=== PATIENT | male | born 1950 | race Caucasian/White ===

== ENCOUNTER → 2023-06-24 13:44 | Outpatient (REF) | payer OTHER, SELFPAY | LOC: RAD 13:44 | PROVIDERS: ATTENDING PHYSICIAN Internal Medicine Cardiovascular Disease; FAMILY PHYSICIAN Family Medicine | DX: I10 Essential (primary) hypertension (principal); I25.10 Atherosclerotic heart disease of native coronary artery without angina pectoris; I73.9 Peripheral vascular disease, unspecified; G62.9 Polyneuropathy, unspecified | CPT/HCPCS: 93922; 93925 ==

== ENCOUNTER → 2023-12-31 12:38 | Outpatient (REF) | payer OTHER, SELFPAY ==
--- NOTE | 2023-12-31 13:55 | CARDSERVLU ---
Echocardiogram with Lumason completed after protocol screening completed. Allergies verified.
Patent IV site: __Rt AC___
IV site flushed with 0.9% NaCl pre and post administration.
Diluted bolus method utilized to enhance visualization of ventricular wyatt.
Total volume given: ___4.5_ mL
Patient tolerated all procedures well without complications.
== END ==
LOC: RCS 12:38
PROVIDERS: ATTENDING PHYSICIAN Internal Medicine Cardiovascular Disease; FAMILY PHYSICIAN Family Medicine
DX: I35.0 Nonrheumatic aortic (valve) stenosis (principal)
CPT/HCPCS: 93306; Q9950

== ENCOUNTER 2024-01-21 06:16 | Day surgery (SDC) | payer OTHER, SELFPAY ==
[2024-01-21] VITALS (19 sets, daily range): BP systolic 127–229; BP diastolic 56–120; BMI 35.4
[2024-01-21] MEDS: LOW STRENGTH ASPIRIN 81 MG PO (07:00)
[2024-01-21] MEDS: NSS 500 IV (07:02)
--- NOTE | 2024-01-21 08:31 | CONSULT.STRU ---
Consultation
-
Date/Time Consultation Requested: 01/21/2024
Date/Time Consultation Performed: 01/21/2024
Requesting Provider: Zaire Ridley MD
Performing Provider: TYRA Alfaro
Reason for Consultation: /TAVR
Patient History
Physicians
Family Physician: Nancy Dallas MD
Outpatient Bowl Sander: Tammy Lopez MD
Primary Bowl Sander: Tammy Lopez MD
History of Present Illness
Mr. Mckeon is a 73 yom with a complex medical history consisting of , CAD (hx of CABG) PVD, renal insufficiency, and T2DM. His most recent echocardiogram from 12/31/2023 is notable for an EF 40-45%, aortic valve P/M 70/30-35, JUNITO 0.6, Pk Ronald 4.2,
trace AI, MAC with trace MR. Symptoms are difficult to ilicit d/t orthopedic limitations and neuropathy, however, he does have ROSA. Discussed the pathophysiology and treatment options of including SAVR and TAVR. Explained the evaluation process
comprising of stage CT scan with outpatient infusion, CT surgical consult, dental clearance, and a heart team discussion. TAVR booklet, contact information, prescriptions, and appointments given to patient. Allowed for and answered questions at
bedside,
Past Medical History
Past Medical History: CAD (hx of CABG x3), CHF (HFrEF), HTN, NIDDM, CARLEE (no CPAP), Renal Insufficiency, Valvular Disease (aortic stenosis) and Other (syncope, RBBB, first degree AV block, hyperlipidemia, CM, statin intolerance, PVD, bilateral
carotid artery obstruction, alcohol abuse (L) foot MRSA, cataracts, melanoma, pilonidal cyst, [place] (no MASTERS), fx (R) fibula)
Past Surgical History
Past Surgical History: CABG (2013), Orthopedic ((L) partial foot amputation (prosthesis), (L) foot skin graft) and Other (bilateral cataracts, melanoma from back removed, pilonidal cyst, LLE stent, implantable loop recorder)
Dental History
[facility] dentistry--Patient will make an appointment
Family History
Mother: Cause of (Alzxheimer's)
Father: Cause of ([place])
Family Medical History: CAD and Hypertension
Social History
Alcohol: Occasional
Drug: None
Tobacco: Non-Smoker
Personal: Other (significant other)
Living: With Family
Employment: Retired
Allergies
Allergy/AdvReac Type Severity Reaction Status Date / Time
Iodinated Contrast Media AdvReac Unknown 'kidney Verified 08/31/21 08:36
issues'
Moderna COVID-19 Vaccine Allergy Rash Uncoded 08/31/21 08:46
Home Medications
�Medication �Instructions �Recorded �Confirmed �Type
evolocumab 140 mg/mL subcutaneous 140 mg SQ Q2W High cholesterol 07/10/21 01/21/24 History
pen injector (Repatha SureClick)
gabapentin 300 mg capsule 300 mg PO DAILY Pain 07/10/21 01/21/24 History
insulin aspart U-100 100 unit/mL 0 units SC TIDPRN PRN blood sugar 07/10/21 01/21/24 History
(3 mL) subcutaneous pen (Novolog
FlexPen U-100 Insulin aspart)
insulin degludec 100 unit/mL (3 38 units SC HS Diabetes 07/10/21 01/21/24 History
mL) subcutaneous pen (Tresiba
FlexTouch U-100 insulin)
nifedipine 30 mg tablet,extended 30 mg PO DAILY Blood pressure 07/10/21 01/21/24 History
release
dapagliflozin propanediol 10 mg 10 mg PO DAILY DIABETES, RENAL 07/11/21 01/21/24 History
tablet (Farxiga) PROTECTION
acetaminophen 325 mg tablet 650 mg (2 x 325 mg) PO Q4HPRN PRN 07/12/21 01/21/24 Rx
aches #30 tabs
aspirin 81 mg tablet,delayed 81 mg PO DAILY Blood clot 07/12/21 01/21/24 Rx
release prevention/tx ##0
carvedilol 6.25 mg tablet 6.25 mg PO DAILY 08/31/21 01/21/24 History
atorvastatin 10 mg tablet 20 mg PO DAILY 01/21/24 01/21/24 History
flash glucose sensor (FreeStyle 01/21/24 01/21/24 History
Fly 14 Day Sensor kit)
hydrochlorothiazide 25 mg tablet 25 mg PO DAILY 01/21/24 01/21/24 History
losartan 100 mg tablet 100 mg PO DAILY 01/21/24 01/21/24 History
STS%
STS %: 2.94
Review of Systems
-
History Source: Patient
General: Reports No Symptoms
HEENT: Reports No Symptoms
Respiratory: Reports ROSA
Cardiac: Reports No Symptoms
Abdomen/GI: Reports No Symptoms
: Reports No Symptoms
Musculoskeletal: Reports No Symptoms
Neurological: Reports No Symptoms
Vascular: Reports PVD
Physical Exam
Vital Signs
Temp 97.3 F 01/21/24 07:02
Temp route: Oral 01/21/24 07:02
Pulse 46 01/21/24 07:45
Resp Rate 24 01/21/24 07:30
Blood pressure 162/64 01/21/24 07:02
Blood pressure extremity used: Right upper arm 01/21/24 07:02
Position: Sitting 01/21/24 07:02
SaO2 94 01/21/24 07:45
Oxygen Mode of Delivery Room air 01/21/24 07:02
Can the patient verbally communicate their pain? Yes 01/21/24 07:08
Actual Weight 105.6 kg 01/21/24 07:08
Body Mass Index (BMI) 35.4 01/21/24 07:08
Labs
01/07/2024
BUN/Creatinine: 32/1.98
GFR: 35
HH: 16.2/49.2
Plt: 252K
Albumin 4.0
Diagnostic Studies
ECHOCARDIOGRAM 12/31/2023:
CONCLUSIONS
1. Left ventricle: Mildly dilated with mildly reduced left ventricular
systolic function and visually estimated ejection fraction of 40-45%.
2. Right ventricle: Normal
3. Atria: Normal
4. Mitral valve: Trace mitral regurgitation
5. Aortic valve: Calcified with restricted aortic leaflet mobility. The mean
aortic valve gradient measured between 30-35 mmHg and the estimated aortic
valve area is 0.6 cm2 by the Continuity equation using an LVOT of 2.1 cm.
Trace aortic insufficiency
6. Tricuspid valve: No tricuspid regurgitation
7. When compared to the most recent echocardiogram from 12/17/22, the LVEF is
now visually estimated at 40-45% rather than 50% and the aortic valve mean
gradient has increased from 26 mmHg to 30-35 mmHg
CARDIAC CATHETERIZATION 01/21/2024:
HEMODYNAMICS (mmHg) :
RA (m) : 20
RV (s/d) : 75/11, 20
PA (s/d,m) : 75/31, 42
PCWP (m) : 34 with V waves to 60 mmHg
AO (s/d, m) : 177/66, 103
LV (s/d) : 208/24
LVEDP (m) : 42
Estimated Maicol Cardiac Output: 3.5 L/min and Cardiac Index: 1.6 L/min/M-2
Systemic vascular resistance: 23.7 Wood units or 1897 bbcfp-bhi-ei(-5)
Pulmonary vascular resistance: 6.3 Wood units or 502 [id number]-nkk-yi(-5)
AORTIC VALVE
Mean gradient: 35 mmHg
Aortic valve area: 0.82 cm�
CONCLUSION
1. Aortic stenosis with mean aortic valve gradient of 35 mmHg and estimated aortic valve area 0.82 cm�
2. Stable coronary artery disease with patent LUI-LAD and sequential [id number]
RECOMMENDATIONS
1. Patient will be discussed at upcoming valve clinic meeting. I reviewed the echocardiographic images and would suggest obtaining a leaflet calcium score by CT scan.
CAROTID ULTRASOUND 12/06/2022:
RIGHT:
Common Carotid Artery:
Prox: PSV: 83 cm/s EDV: 14 cm/s
Mid: PSV: 83 cm/s EDV: 15 cm/s
Distal: PSV: 64 cm/s EDV: 14 cm/s
External Carotid Artery:
PSV: 228 cm/s
Internal Carotid Artery:
Prox: PSV: 103 cm/s EDV: 22 cm/s Prior: PSV: cm/s
Mid: PSV: 135 cm/s EDV: 33 cm/s
Distal: PSV: 131 cm/s EDV: 30 cm/s
ICA/CCA Ratio: 1.62 Prior:1.71
Vertebral Artery:
PSV: 89 cm/s Flow:Antegrade
LEFT:
Common Carotid Artery:
Prox: PSV: 94 cm/s EDV: 17 cm/s
Mid: PSV: 86cm/s EDV: 16 cm/s
Distal: PSV: 99 cm/s EDV: 15cm/s
External Carotid Artery:
PSV: 129 cm/s
Internal Carotid Artery:
Prox: PSV: 127 cm/s EDV: 24 cm/s Prior: PSV: cm/s
Mid: PSV: 102 cm/s EDV: 16 cm/s
Distal: PSV: 95 cm/s EDV: 23 cm/s
ICA/CCA Ratio: 1.49 Prior:.82
Vertebral Artery:
PSV: 45 cm/s Flow:Antegrade
IMPRESSION: Calcified plaque throughout majority of visualized vessels. Velocity profiles are consistent with less than 50% stenosis bilateral internal carotid arteries. Antegrade flow bilateral vertebral arteries.
CABG 07/15/2023 ([facility]):
SURGICAL PROCEDURES: Coronary artery bypass grafting x3 done on 07/14/2013
and consisting of a left internal mammary artery to left anterior descending
and a saphenous vein graft sequentially to the 1st diagonal and then to obtuse
marginal #1.
Procedure Type:�Isolated AVR
PERIOPERATIVE OUTCOME ESTIMATE %
Operative Mortality 2.94%
Morbidity & Mortality 15.1%
Stroke 2.77%
Renal Failure 3.98%
Reoperation 3.91%
Prolonged Ventilation 9.02%
Deep Sternal Wound Infection 0.217%
Long Hospital Stay (>14 days) 5.45%
Short Hospital Stay (<6 days)* 38.9%
Exam
General: Well Developed, Well Nourished, No Apparent Distress and Comfortable
HEENT: Moist Mucous Membranes
Neck: Trachea Midline
Respiratory: Clear
Cardiac: Regular Rhythm and Murmur (II/ HAROON)
GI: Soft and Non Tender
Rectal: Deferred by Provider
Skin: Warm
Neuro: Awake, Alert, Oriented and AO x 3
Psych: Calm
Assessment / Plan
-
Aortic stenosis
Continue TAVR evaluation
Trend creatinine and GFR (Rx given)
Staged TAVR CT scan (chest w/ oid 02/05)
CT surgical consult (TT 02/11)
Frailty testing and KCCQ12 at consult
Continue aspirin
Dental clearance
Heart team discussion.
Data Reviewed
-
EKG: Tracing Personally Visualized and interpreted (SR with RBBB, first degree AVB)
Petroleum Inspector Supervisor: Report Reviewed by me and Discussed with Physician
Echo: Report Reviewed by me and Discussed with Physician
Labs: Labs Reviewed by me
Old Records: Reviewed (Dr. Lopez's office note, old records)
Total Time Spent with Patient (in minutes): 45
[2024-01-21] MEDS: NSS 1000 IV (09:44)
--- NOTE | 2024-01-21 10:04 | ITS.CL.CATH ---
Addendum entered and electronically signed by Zaire Ridley MD 01/21/24 12:27:
Attending addendum: Patient developed 2:1 AV conduction with episodes of what appears to be Wenckebach (2nd degree type 1). He does have a history of syncope several years ago with newly decreased LV function. I will discuss with EP and obtain ECG
/ [facility] interrogation. Further management will depend on EP evaluation
Original Note:
Pharmaceutical Scientist - Catheterization
Cardiac Catheterization
Procedure Report:
RIGHT AND LEFT HEART CATHETERIZATION
Date of Procedure: January 21, 2024
Referring: Dr. Tammy Lopez
PROCEDURES:
1. Right heart catheterization
2. Left heart catheterization with coronary angiography
3. Selective saphenous vein graft and FERNANDO angiography
INDICATION: This is a 73-year-old gentleman with a past medical history notable for coronary artery disease had coronary artery bypass grafting in 2013 with a LUI-LAD and EWB-wfwnwesu-HG. He has longstanding diabetes, marginally controlled
hypertension, hyperlipidemia and aortic stenosis. His most recent echocardiogram was notable for new LV dysfunction with an estimated ejection fraction of 40-45% and a mean aortic valve gradient between 30-35 mmHg. He is not physically active. He
has known peripheral vascular disease leading to amputation of the left foot. He follows with Dr. Lai. He has known underlying renal insufficiency and follows with Dr. Tristin Cardona.
ACCESS: Left common femoral artery, 6 [place] sheath in left common femoral vein, 6 [place] sheath
HEMODYNAMICS (mmHg) :
RA (m) : 20
RV (s/d) : 75/11, 20
PA (s/d,m) : 75/31, 42
PCWP (m) : 34 with V waves to 60 mmHg
AO (s/d, m) : 177/66, 103
LV (s/d) : 208/24
LVEDP (m) : 42
Estimated Maicol Cardiac Output: 3.5 L/min and Cardiac Index: 1.6 L/min/M-2
Systemic vascular resistance: 23.7 Wood units or 1897 lctmq-fzj-xn(-5)
Pulmonary vascular resistance: 6.3 Wood units or 502 uqrch-kgb-dk(-5)
AORTIC VALVE
Mean gradient: 35 mmHg
Aortic valve area: 0.82 cm�
CORONARY ANGIOGRAPHY
Dominance: Right
LEFT MAIN: Short and unobstructed
LEFT ANTERIOR DESCENDING: The LAD arises normally from the left main and is moderate to heavily calcified. There is competitive flow in the mid LAD near the second septal turnstile collector from a widely patent FERNANDO graft as listed below
CIRCUMFLEX: The circumflex is a moderate caliber nondominant vessel. A small first obtuse marginal branch is noted to be occluded with the distal vessel filling via left to left collaterals. A large terminal obtuse marginal branch is the recipient
of a sequential portion of the MZS-oerzqapk-IS bypass conduit. There is antegrade and retrograde filling of OM 2 and the bypass graft appears widely patent
RIGHT CORONARY ARTERY: The right coronary artery is known to be 100% occluded in its midportion since 2012
GRAFT ANGIOGRAPHY:
1. KCW-ffncdzmi-WX 2: The sequential saphenous vein graft to the diagonal and OM 2 is widely patent
2. LUI-LAD: The LUI-mid LAD is widely patent with anterograde and retrograde filling of the LAD
LEFT VENTRICULOGRAPHY: Not done due to elevated creatinine
RADIATION SUMMARY: Fluoro Time (min): 9.9, Dose (mGy): 620, DAP (Gy.cm2) : 58.8
Closure Device: 6 [place] Angio-Seal LFA
CONCLUSION
1. Aortic stenosis with mean aortic valve gradient of 35 mmHg and estimated aortic valve area 0.82 cm�
2. Stable coronary artery disease with patent LUI-LAD and sequential [id number]-[id number]-UA0
RECOMMENDATIONS
1. Patient will be discussed at upcoming valve clinic meeting. I reviewed the echocardiographic images and would suggest obtaining a leaflet calcium score by CT scan.
Copy to: Dr. Tammy Lopez
--- NOTE | 2024-01-21 12:50 | PTCARENOTE ---
Conduction delay noted on monitor, more noticeable with heart rate dips to high 30's. DR Ridley notified. EKG done. Sánchez Valdez shortly at the bedside with LINQ device. EKG done. 2-[address] Lopez shortly after the the
bedside obtaining consent for pacemaker insertion and LINQ removal. Dr Reinoso also evaluating pt. Pt's blood sugars checked with own device. 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 Pt had only 2 sips of donna katarina,
spouse drank his bedside drink because she's a DM1 sensing BG drop. He's refused food so he's been mostly NPO with the exception of' a couple of sips of donna katarina'. IV patent. Abx ordered.
--- NOTE | 2024-01-21 13:09 | PTCARENOTE ---
Report to Christina VILLASEÑOR. Pt to EP lab now.
--- NOTE | 2024-01-21 13:26 | ITS.CL.PACE ---
Iron Piler - Pacemaker Implant
Pacemaker Implant
Procedure Report:
PACEMAKER IMPLANT REPORT
Primary Care Provider: Dr Nancy Dallas
Primary end stapler: Dr Tammy Lopez
Date of Procedure: January 21, 2024
Procedure:
Implantation of dual-chamber permanent pacemaker utilizing the left bundle branch for conduction system pacing
Indication/Diagnosis:
Non-reversible symptomatic bradycardia due to second atrioventricular block.
He has previously had abrupt syncope and no definite etiology. He does have left anterior fascicular block and first-degree AV delay. More recently it has been noted that he has 2-1 AV block, symptomatic with dyspnea on exertion. He has known
left ventricular systolic dysfunction without coronary artery disease. LVEF is 40-45%. Additionally he has moderate to severe aortic stenosis and is being considered for TAVR.
After informed consent was obtained, 'time out' was called and confirmed, the patient was prepped and draped in a sterile fashion. Lidocaine with epi was used for local anesthesia. Central venous access was obtained via subclavian venipuncture. An
incision was made along the left chest and a pre-pectoral pocket was formed. Using a Seldinger technique and peel-away sheaths, the pacing leads were placed under fluoroscopic guidance.
Fluoroscopy was used to determine likely anatomic site for left bundle branch pacing. The Medtronic C315 sheath was used to deliver the Medtronic 3830 Selectsecure pacing lead with the helix exposed just exposed from the sheath tip during continuous
monitoring when pacemapping the septum during gentle clockwise rotation to obtain a paced QRS morphology of a W pattern in lead V1. Once the suspected optimal site was identified, lead deployment was performed with several rapid rotations as paced
QRS morphology was intermittently monitored until a paced QRS complex in lead V1 demonstrated development of an R wave (qR or rSR).
Unipolar pacing impedance dropped by approximately 200 ohms suggesting it had reached the left ventricular subendocardial.
Stable positive VEgm injury current is present throughout final lead position including at end of case, suggesting there was no perforation through the septum into the LV cavity.
Final unipolar pacing impedance is 850 Ohms
Unipolar pacing threshold is stable at 1 V @ 0.4 ms.
Final conduction system paced QRS complex duration is 92 ms
LVAT is 88 ms and peak V5 -> peak V1 timing is 42 ms
Right atrial lead was placed at the RAA.
Once testing (see below) showed adequate and stable function, the leads were secured using the suture sleeves. The pocket was liberally irrigated with antibiotic solution. The leads were connected to the generator header and the leads and
generator were placed within the pocket. Fluoroscopy confirmed stable lead position. The pocket was closed in the typical fashion.
IMPLANTS:
Medtronic [id number], SN: [id number], Left Pectoral
RA: Medtronic 5076-45, SN: [id number], RAA
RV: Medtronic 3830 , SN:[id number], Interventricular septum at LBB
DEVICE TESTING:
Sensing: RA 1.9 mV, RV 9.4 mV
Capture: RA 1.25 V@0.4ms, RV 0.75 V@0.4ms
Ohms: RA 722, RV 456 (bipolar)
FINAL PROGRAMMING
Tommy Pacing: DDD 60-130 ppm
COMPLICATIONS:
None
CONCLUSIONS:
Successful implant of dual chamber permanent pacemaker utilizing Left Bundle Branch conduction system capture for pacing for cardiac resynchronization.
RECOMMENDATIONS:
Post-op care (tele, CXR, IV abx)
In-Office wound check in 5-7 days
Additionally, review of his right heart catheterization this morning shows markedly elevated filling pressures and elevated pulmonary capillary wedge pressure of 34 mmHg. Although this is in the setting of marked hypertension, he is likely somewhat
volume overloaded, possibly exacerbation of heart failure due to his 2-1 heart block. Will give a one-time dose of 40 mg IV Lasix tonight.
Copy to:
Dr Nancy Dallas
Dr Tammy Lopez
--- NOTE | 2024-01-21 13:32 | ITS.CL.IMPLP ---
Game Preserve Manager - Implant Loop
Implant Loop
Procedure Report:
LINQ IMPLANTED MONITOR REMOVAL
Date of Procedure: January 21, 2024
Primary Care Provider: Dr Nancy Dallas
Primary asp net c developer: Dr Tammy Lopez
PROCEDURES:
1. Removal of implanted loop recorder
INDICATION FOR PROCEDURE:
Diagnosis made, ILR no longer required.
After informed consent was obtained,'time out' was called and confirmed, the patient was prepped and draped in a sterile fashion.
SEDATION: Via the anesthesia department with conscious sedation
Lidocaine with epi was used for local anesthesia. An incision was made along the prior incision and the Linq monitor was carefully dissected from the pocket. The pocket was liberally irrigated with antibiotic solution. The pocket was closed in
the typical fashion.
COMPLICATIONS:
None
CONCLUSIONS:
1. Removal of implanted loop recorder.
RECOMMENDATIONS:
In-Office wound check in 7-14 days.
Copy to:
Dr Nancy Dallas
Dr Tammy Lopez
[2024-01-21] MEDS: LASIX 40 MG IV (15:47)
[2024-01-21] MEDS: COZAAR 100 MG PO (15:55)
--- NOTE | 2024-01-21 15:56 | PTCARENOTE ---
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 AO x 3. V-paced HR 86, BP 185/88. Iv Lasix and Cozaar given. Urinal provided. Left arm immobilizer in place. Left chest wall dressing dry and intact. Left groin cath site CDI, partially ambulated left foot, +1 pulse.
Denies pain ,Call ariza in reach
[2024-01-21 16:42] LABS: Glucose - Point of Care 102 mg/dl (70-99)
[2024-01-21] MEDS: COREG 6.25 MG PO (19:49)
[2024-01-21] MEDS: TYLENOL 650 MG PO (19:50)
[2024-01-21] MEDS: ANCEF 5 IV (19:51)
[2024-01-21 22:44] LABS: Glucose - Point of Care 149 mg/dl (70-99)
[2024-01-21] MEDS: LANTUS 0.38 UNITS SC (22:44)
--- NOTE | 2024-01-21 23:00 | PTCARENOTE ---
Pt received at change of shift. VSS, V paced on tele with HR 60s-70s. L groin cath site c/d/i with no complications noted. L chest wall PPM site c/d/i w/ pressure dressing and immobilizer in place. Tylenol administered for 5/10 L chest wall
incision pain, see MAR. Pt voiding in urinal. Can make needs known. Call ariza within reach.
[2024-01-22] VITALS (7 sets, daily range): BP systolic 125–182; BP diastolic 64–86; PULSE 70
[2024-01-22] MEDS: ANCEF 5 IV (04:38)
[2024-01-22 05:11] LABS: Hematocrit 44.4 % (39.0-52.0); Hemoglobin 15.5 g/dL (13.0-18.0); Mean Corp Hgb Conc. 34.9 g/dL (33.0-37.0); Mean Corpuscular Hgb 29.8 pg (27.0-31.0); Mean Corpuscular Volume 85.2 fL (80.0-94.0); Mean Platelet Volume 10.3 fL (7.4-10.4); Platelet Count 240 10^3/uL (130-400); Red Blood Cell Count 5.21 10^6/uL (4.70-6.10); Red Cell Dist. Width 14.2 % (11.5-14.5); White Blood Cell Count 7.9 10^3/uL (4.8-10.8)
[2024-01-22 05:36] LABS: Blood Urea Nitrogen 31 mg/dl (9-20); Calcium 8.6 mg/dl (8.4-10.2); Carbon Dioxide 24 mmol/L (22-30); Chloride 105 mmol/L (98-107); Estimated Creatinine Clearance 46 ml/min; Glucose 95 mg/dl (70-99); Magnesium 2.1 mg/dl (1.6-2.3); Potassium 4.3 mmol/L (3.5-5.1); Sodium 143 mmol/L (135-145); eGFR 42.04
[2024-01-22] MEDS: ASPIR LOW (ENTERIC COATED) 81 MG PO (07:58)
[2024-01-22] MEDS: FARXIGA 10 MG PO (07:58)
[2024-01-22] MEDS: COREG 6.25 MG PO ×2 (07:58→10:41)
[2024-01-22] MEDS: LIPITOR 20 MG PO (07:58)
[2024-01-22] MEDS: ORETIC 25 MG PO (07:58)
[2024-01-22] MEDS: COZAAR 100 MG PO (07:58)
[2024-01-22] MEDS: NEURONTIN 300 MG PO (07:58)
[2024-01-22] MEDS: PROCARDIA XL (EXTENDED RELEASE) 30 MG PO (08:00)
[2024-01-22 08:42] LABS: Glucose - Point of Care 93 mg/dl (70-99)
[2024-01-22 08:55] LABS: Glycohemoglobin (HgbA1c) 6.9 % (4.0-5.6)
[2024-01-22] MEDS: NORVASC 5 MG PO (09:09)
--- NOTE | 2024-01-22 10:00 | W.PN.CARDCBS ---
Today's Communication / Plan
-
post LHC, PPM and loop explant 01/21/24
tighter BP control, increase carvedilol and switch to amlodipine
continue outpt TAVR eval
Home today
Impression / Plan
-
Primary care physician: Nancy Dallas MD
Primary flight dispatcher: Dr. Tammy Lopez
73-year-old gentleman with a past medical history notable for coronary artery disease had coronary artery bypass grafting in 2013 with a LUI-LAD and VKT-iqpgwoyl-FK. He has longstanding diabetes, marginally controlled hypertension, hyperlipidemia
and aortic stenosis. His most recent echocardiogram was notable for new LV dysfunction with an estimated ejection fraction of 40-45% and a mean aortic valve gradient between 30-35 mmHg. He is not physically active. He has known peripheral
vascular disease leading to amputation of the left foot. He follows with Dr. Lai. He has known underlying renal insufficiency and follows with Dr. Tristin Cardona.
Impression:
CAD s/p CABGx3 2013 (LUI-LAD, SVG-diag-OM)
Severe Aortic stenosis
Syncope s/p Loop recorder 2021
symptomatic bradycardia with 2:1 heart block
acute on chronic HFrEF 40-45%
RBBB
HTN
HLD
DM2 with diabetic neuropathy
CDK 3b
b/l carotid artery disease
PVD prior LLE stent
partial Left foot amputation
h/o ETOH abuse
Plan:
post [place] for TAVR eval with patent grafts and no new CAD
in recovery HR noted on tele to be bradycardic with periods of 2:1 heart block
He underwent Linq removal and DC PPM 01/21/24
tele AsVpaced, site stable
RHC pressures severely elevated and received lasix 40iv x 1
Denies sob this am, CXR no acute pulmonary edema, no PTX
He is also extremely HTN, we will increase carvedilol to 12.5mg bid
Stop nifedipine, new start to amlodipine 5mg daily
Monitor bp at home and bring log to f/u apt
Severe , TAVR team will discuss planning for outpt w/u CT scan and surgical eval
check BMP next week with CKD3b prior to CT scan, Cr 1.7 post cath/device (baseline 1.5-1.7)
Activity restrictions reviewed
inc check next week
stable for home today if next BP improved
Progress Note - Ditching Machine Operator
Subjective
Date of Service: January 22, 2024
mild inc pain, denies sob
Objective
Labs:
01/22/24 04:51
01/22/24 04:51
Labs
Hgb 15.5 g/dL (13.0-18.0) 01/22/24 04:51
Hct 44.4 % (39.0-52.0) 01/22/24 04:51
Plt Count 240 10^3/uL (130-400) 01/22/24 04:51
Sodium 143 mmol/L (135-145) 01/22/24 04:51
Potassium 4.3 mmol/L (3.5-5.1) 01/22/24 04:51
BUN 31 mg/dl (9-20) H 01/22/24 04:51
Creatinine 1.7 mg/dL (0.7-1.3) H 01/22/24 04:51
Glucose 95 mg/dl (70-99) 01/22/24 04:51
Vital Signs and I&O:
Vital Signs
Temp Pulse Resp BP Pulse Ox
97.9 F 67 18 182/83 98
01/22/24 07:48 01/22/24 08:00 01/22/24 07:48 01/22/24 07:46 01/22/24 08:00
Vital Signs
Temp Pulse Resp BP Pulse Ox
97.9 F 67 18 182/83 98
01/22/24 07:48 01/22/24 08:00 01/22/24 07:48 01/22/24 07:46 01/22/24 08:00
Intake & Output
01/20/24 01/21/24 01/22/24 01/23/24
06:59 06:59 06:59 06:59
Intake Total 1250 / 1250 300 / 300
Output Total 1600 / 1600
Balance -350 / -350 300 / 300
Physical Exam
Physical Exam
NAD< AOX3
S1, S2, RRR
CTAB, non labored no wheeze
SNTND bsx4
L fem site c/d/i soft, no HT
L CW Aquacel dressing c/d/i, no HT
loop explant site with steri strips on drainage
--- NOTE | 2024-01-22 11:38 | CM ---
CM following for DC planning needs.
Met w/ patient at bedside to complete initial assessment.
Pt. informs that he resides w/ spouse in a private, 2 story home but is maintained on the first level. He is indep. at baseline and uses a SPC for ambulation. Spouse feels that patient may benefit from RW. I asked WEB OPERATIONS LEAD for PT evaluation for RW
assessment; they can provide at DC if felt this is beneficial.
Pt. has RX plan and uses [facility] on [address] in [place].
He anticipates to return at a later time for TAVR.
Anticipate DC to home without needs.
Will remain avail.
[2024-01-22 12:51] LABS: Glucose - Point of Care 115 mg/dl (70-99)
--- NOTE | 2024-01-22 15:19 | PTCARENOTE ---
Discharge instructions reviewed w/ pt. Verbalizes understanding. IV and tele removed. Belongings collected and brought home w/ spouse. Pt discharged to home. Escorted in wheelchair w/ staff assist.
--- NOTE | 2024-01-22 15:41 | W.DS.TRANS ---
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
-
Discharge Instructions:
Discharge Diagnosis/Procedures Cardiac cath, Pacemaker implant and loop explant
Diet Low Cholesterol,Diabetic, Carb Controlled,2 Gram
Sodium
Driving Restrictions No driving for 1 week
Bathing Restrictions OK to Shower
Blood Work PLEASE GET YOUR LAB WORK NEXT WEEK (SATURDAY OR
SATURDAY). PLEASE FAX RESULTS TO [phone]
[facility] HEART TEAM
Others Tests THE FIRST PORTION OF YOUR CT SCAN IS SCHEDULED
FOR 02/06/2024 @ 9:30 AT [facility]. (
AT 7:45 YOU WILL GO TO THE OUTPATIENT INFUSION
CENTER BEFORE AND AFTER CT SCAN, PLEASE SEE
ATTACHED INSTRUCTIONS) NOTHING TO EAT OR DRINK [address] SCAN. PLEASE BRING A LIST
OF YOUR MEDICATIONS.
YOU WILL NEED DENTAL CLEARANCE BEFORE YOUR
VALVE REPLACEMENT
Instructions:
Stand-Alone Forms: DC Instructions- Cath/EP Lab
Changes to Home Medications: Yes
Discharge Medications:
DC Medications w/original date entered in [employer]
evolocumab 140 mg/mL subcutaneous pen injector (Repatha SureClick) 140 mg SQ Q2W High cholesterol 07/10/21
gabapentin 300 mg capsule 300 mg PO DAILY Pain 07/10/21
insulin aspart U-100 100 unit/mL (3 mL) subcutaneous pen (Novolog FlexPen U-100 Insulin aspart) 0 units SC TIDPRN PRN blood sugar 07/10/21
insulin degludec 100 unit/mL (3 mL) subcutaneous pen (Tresiba FlexTouch U-100 insulin) 38 units SC HS Diabetes 07/10/21
dapagliflozin propanediol 10 mg tablet (Farxiga) 10 mg PO DAILY DIABETES, RENAL PROTECTION 07/11/21
acetaminophen 325 mg tablet 650 mg (2 x 325 mg) PO Q4HPRN PRN aches #30 tabs 07/12/21
aspirin 81 mg tablet,delayed release 81 mg PO DAILY Blood clot prevention/tx ##0 07/12/21
atorvastatin 10 mg tablet 20 mg PO DAILY 01/21/24
flash glucose sensor (FreeStyle Fly 14 Day Sensor kit) 01/21/24
hydrochlorothiazide 25 mg tablet 25 mg PO DAILY 01/21/24
losartan 100 mg tablet 100 mg PO DAILY 01/21/24
amlodipine 5 mg tablet 5 mg PO DAILY #90 tabs 01/22/24
carvedilol 6.25 mg tablet 12.5 mg (2 x 6.25 mg) PO BID #0 tabs 01/22/24
Home Medication Changes
stopped nifedipine, new to amlodipine, increased carvedilol to 12.5 bid
Pending Results: No
== END 2024-01-22 15:21 | disposition home or self-care (01) ==
LOC: CATH 06:16
PROVIDERS: Nurse Practitioner Adult Health; ATTENDING PHYSICIAN Internal Medicine Interventional Cardiology; FAMILY PHYSICIAN Family Medicine; OTHER PHYSICIAN Internal Medicine Cardiovascular Disease
DX: I44.1 Atrioventricular block, second degree (principal); I25.10 Atherosclerotic heart disease of native coronary artery without angina pectoris; Z95.1 Presence of aortocoronary bypass graft; I35.0 Nonrheumatic aortic (valve) stenosis; R55 Syncope and collapse; I50.23 Acute on chronic systolic (congestive) heart failure; I13.0 Hypertensive heart and chronic kidney disease with heart failure and stage 1 through stage 4 chronic kidney disease, or unspecified chronic kidney disease; I45.2 Bifascicular block; E11.40 Type 2 diabetes mellitus with diabetic neuropathy, unspecified; E11.22 Type 2 diabetes mellitus with diabetic chronic kidney disease; E11.51 Type 2 diabetes mellitus with diabetic peripheral angiopathy without gangrene; Z95.820 Peripheral vascular angioplasty status with implants and grafts; F10.21 Alcohol dependence, in remission; Z79.4 Long term (current) use of insulin; Z79.899 Other long term (current) drug therapy; Z79.82 Long term (current) use of aspirin; Z09 Encounter for follow-up examination after completed treatment for conditions other than malignant neoplasm
CPT/HCPCS: 33208; 33286; 71045; 80048; 82962; 83036; 83735; 85027; 93005; 93461; 97162; C1760; C1769; C1785; C1887; C1892; C1894; C1898; Q9967

== ENCOUNTER 2024-02-06 07:39 | Outpatient (RCR) | payer OTHER, SELFPAY ==
[2024-02-06] MEDS: NSS 500 IV (08:17)
[2024-02-06 08:33] VITALS: BP 151/71
== END 2024-02-07 08:07 | disposition home or self-care (01) ==
LOC: OID 07:39
PROVIDERS: ATTENDING PHYSICIAN Nurse Practitioner Adult Health; FAMILY PHYSICIAN Family Medicine
DX: I35.0 Nonrheumatic aortic (valve) stenosis (principal); Z92.89 Personal history of other medical treatment
CPT/HCPCS: 74174; 96360; 96361; Q9967

== ENCOUNTER 2024-02-25 08:31 | Outpatient (RCR) | payer OTHER, SELFPAY ==
[2024-02-25 09:10] VITALS: BP 157/77
[2024-02-25] MEDS: NSS 500 IV (09:11)
== END 2024-02-26 10:16 | disposition home or self-care (01) ==
LOC: OID 08:31
PROVIDERS: ATTENDING PHYSICIAN Nurse Practitioner Adult Health; FAMILY PHYSICIAN Family Medicine
DX: I35.0 Nonrheumatic aortic (valve) stenosis (principal)
CPT/HCPCS: 75572; 96360; 96361; Q9967

== ENCOUNTER 2024-04-02 09:25 | Inpatient (IN) | payer OTHER, SELFPAY ==
--- NOTE | 2024-03-25 07:05 | HPS.HSE ---
Family Physician
-
Family Physician: Nancy Dallas
Chief Complaint
-
SOB
Pre-TAVR evaluation
History of Present Illness
Mr. Mckeon is a 73 yom with a complex medical history consisting of , CAD (hx of CABG) PVD, renal insufficiency, and T2DM. His most recent echocardiogram from 12/31/2023 is notable for an EF 40-45%, aortic valve P/M 70/30-35, JUNITO 0.6, Pk Ronald 4.2,
trace AI, MAC with trace MR. His cardiac catheterization from 01/21/2024 is significant for aortic stenosis with mean aortic valve gradient of 35 mmHg and estimated aortic valve area 0.82 cm� and stable coronary artery disease with patent LUI-LAD
and sequential [id number]. Post catheterization Mr. Mckeon developed 2:1 AV conduction with episodes of what appears to be Wenckebach (2nd degree type 1). He received a successful implant of Medtronic dual chamber permanent pacemaker utilizing
Left Bundle Branch conduction system capture for pacing for cardiac resynchronization. Symptoms are difficult to ilicit d/t orthopedic limitations and neuropathy, however, he does have ROSA. Discussed the pathophysiology and treatment options of
including SAVR and TAVR. Explained the evaluation process comprising of stage CT scan with outpatient infusion, CT surgical consult, dental clearance, and a heart team discussion.
Mr. Mckeon has been evaluated by the heart team and recommended for a 26mm S3 via right transfemoral access. He has been scheduled for TAVR 04/02/2024. Confirmed medication list and Mr. Mckeon will continue aspirin daily including the morning of
TAVR, he will hold Farxiga x 5 days prior to TAVR (last dose Monday 03/27). Patient will arrive to the [facility] at 0930. Reviewed the risks of the procedure as discussed with Dr. Niño in consult including stroke and vascular injury. He was
informed that he will receive a phone call from the heart team on Saturday04/01/2024 to confirm time and location of arrival. Allowed for and answered questions.
Medical History
Past Medical History
Past Medical History: Reports CAD (Hx of CABG), CHF (HFrEF), HTN, IDDM, Renal Failure (Hx of renal failure (not requiring dialysis) ), Valvular Disease (aortic stenosis) and Other (Diabetic neuropathy, CM (EF 15%), alcohol abuse, RBBB w/ LAFB,
hyperlipidemia, PVD, MRSA (L) foot (2019), syncope, CARLEE (no CPAP), cataracts, melanoma, [place] (no MASTERS), fx (R) fibula)
Past Surgical History: Reports Cardiac (CABGx3 (2013), PPM (2023)), Orthopedic ((L) great toe and first toe amputation, (L) foot skin graft) and Other (melanoma removed from back, pilonidal cyst, bilateral cataracts)
Social History
Tobacco: Non-smoker
Alcohol: Occasional
Drug: None
Personal:
Living: With Family
Family History
Family History: CAD and Diabetes
Allergies / Home Medications
Allergies reflects when Allergies were last updated in [employer].
Augmentin
Moderna COVID-19 Vaccine
Home Medications with original date entered in [employer]
Acetaminophen 325 MG Tablet 1 tablet as needed Orally every 6 hrs
amLODIPine Besylate 10 MG Tablet 1 tablet Orally Once a day
Aspirin 81 MG Tablet Delayed Release 1 tablet Orally Once a day
Atorvastatin Calcium 10 MG Tablet 2 tablet Orally Once a Day
Carvedilol 12.5 MG Tablet 1 tablet with food Orally Twice a Day
Farxiga(Dapagliflozin Propanediol) 10 MG Tablet 1 tablet Orally Once a Day
FreeStyle Fly 14 Day Sensor
Gabapentin 300 MG Capsule 1 capsule Oral Once a Day
hydroCHLOROthiazide 25 MG Tablet 1 tablet in the morning Orally Once a day
Losartan Potassium 100 MG Tablet 1 tablet Orally Once a day , Notes to Pharmacist: increased dose
NovoLOG(Insulin Aspart) 100 UNIT/ML Solution 30 units before each meals then follow sliding scale Subcutaneous
Repatha(Evolocumab) 140 MG/ML Solution Prefilled Syringe 1 ml Subcutaneous every 2 week
Allergy/Medication List:
Augmentin
Moderna Covid vaccine
Review of Systems
-
History Source: Patient
Constitutional: Reports No Symptoms
EENT: Reports No Symptoms
Respiratory: Reports Trouble Breathing
Cardiac: Reports No Symptoms
Abdomen/GI: Reports No Symptoms
: Reports No Symptoms
Musculoskeletal: Reports No Symptoms
Skin: Reports No Symptoms
Neurological: Reports No Symptoms
Endocrine: Reports No Symptoms
Hematologic/Lymphatic: Reports No Symptoms
Psych: Reports No Symptoms
Physical Exam
Physical Exam
General: Well Developed, Well Nourished, No Apparent Distress and Comfortable
HEENT: NormoCephalic and Moist mucous membranes
Respiratory: Clear
Cardiac: Murmur (III/ HAROON)
GI: Soft, Non Tender and Non Distended
Rectal: Deferred by Provider
Genito-urinary: Deferred by me
Musculoskeletal: Edema, Left Lower Extremity (trace) and Edema, Right Lower Extremity (trace)
Skin: Warm and Dry
Neuro: Awake, Alert and Oriented
Psych: Calm
Data Reviewed
-
CT Scan: Report Reviewed by me and Discussed with Physician (TAVR CT scan reviewed with the heart team)
Medical Tests (Nuc Med, Echo, EKG etc): Report Reviewed by me and Discussed with Physician (echocardiogram and cardiac catheterization reviewed with the heart team)
Lab Data: Labs Reviewed by me
Old Records: Reviewed (Office notes and procedure notes)
Impression/Plan
-
IMPRESSION/PLAN:
Aortic stenosis
TF TAVR planned utilizing a 26mm S3 via (R) transfemoral access.
POD#1/#30 echocardiogram
Cardiac rehab consult
Continue aspirin.
Labs
-
Labs:
WBC 8.6 10^3/uL (4.8-10.8) 03/25/24 08:45
RBC 5.10 10^6/uL (4.70-6.10) 03/25/24 08:45
Hgb 15.4 g/dL (13.0-18.0) 03/25/24 08:45
Hct 45.8 % (39.0-52.0) 03/25/24 08:45
Plt Count 215 10^3/uL (130-400) 03/25/24 08:45
Sodium 139 mmol/L (135-145) 03/25/24 08:45
Potassium 4.3 mmol/L (3.5-5.1) 03/25/24 08:45
Chloride 99 mmol/L (98-107) 03/25/24 08:45
Carbon Dioxide 29 mmol/L (22-30) 03/25/24 08:45
BUN 27 mg/dl (9-20) H 03/25/24 08:45
Creatinine 1.6 mg/dL (0.7-1.3) H 03/25/24 08:45
eGFR 45.21 03/25/24 08:45
Glucose 151 mg/dl (70-99) H 03/25/24 08:45
Calcium 8.5 mg/dl (8.4-10.2) 03/25/24 08:45
Albumin 4.1 g/dl (3.5-5.0) 03/25/24 08:45
[2024-03-25 08:35] VITALS: BMI 37.3
[2024-03-25 09:02] LABS: % Basophils 0.5 % (0-2); % Eosinophils 0.7 % (0-6); % Immature Granulocytes 0.4 % (0-0.5); % Lymphocytes 7.1 % (20.5-51.1); % Monocytes 7.8 % (1.7-9.3); % Neutrophils 83.5 % (42.2-75.2); Absolute Eosinophils 0.1 10^3/uL (0-0.7); Absolute Lymphocytes 0.6 10^3/uL (1.2-3.4); Absolute Monocytes 0.7 10^3/uL (0.1-0.6); Absolute Neutrophils 7.2 10^3/uL (1.4-6.5); Hematocrit 45.8 % (39.0-52.0); Hemoglobin 15.4 g/dL (13.0-18.0); Mean Corp Hgb Conc. 33.6 g/dL (33.0-37.0); Mean Corpuscular Hgb 30.2 pg (27.0-31.0); Mean Corpuscular Volume 89.8 fL (80.0-94.0); Mean Platelet Volume 10.4 fL (7.4-10.4); Nucleated Red Blood Cells % 0 % (-); Platelet Count 215 10^3/uL (130-400); Red Cell Dist. Width 14.1 % (11.5-14.5); White Blood Cell Count 8.6 10^3/uL (4.8-10.8)
[2024-03-25 09:18] LABS: INR 0.87; PT 12.3 Sec (11.4-14.6)
[2024-03-25 09:21] LABS: APTT 28.1 Sec (23.4-35.0)
[2024-03-25 09:24] LABS: ALT (SGPT) 14 U/L (0-50); AST (SGOT) 21 U/L (17-59); Albumin 4.1 g/dl (3.5-5.0); Alkaline Phosphatase 129 U/L (38-126); Blood Urea Nitrogen 27 mg/dl (9-20); Calcium 8.5 mg/dl (8.4-10.2); Carbon Dioxide 29 mmol/L (22-30); Chloride 99 mmol/L (98-107); Estimated Creatinine Clearance 50 ml/min; Glucose 151 mg/dl (70-99); Potassium 4.3 mmol/L (3.5-5.1); Sodium 139 mmol/L (135-145); Total Bilirubin 0.6 mg/dl (0.2-1.3); Total Protein 6.9 g/dl (6.3-8.2); eGFR 45.21
[2024-03-25 09:36] LABS: Glycohemoglobin (HgbA1c) 6.9 % (4.0-5.6)
[2024-03-25 10:08] LABS: Urine Albumin 2+ (Neg - Trace); Urine Bilirubin Negative (Negative); Urine Character Clear (Clear); Urine Color Yellow; Urine Glucose 3+ (Negative); Urine Ketone Negative (Negative); Urine Leukocyte Negative (Negative); Urine Nitrite Negative (Negative); Urine Occult Blood Trace (Negative); Urine Urobilinogen Negative (Neg - 1+); Urine pH 6.5 (5.0-9.0)
[2024-03-25 10:31] LABS: Urine Bacteria Moderate (Negative); Urine Red Blood Cell 0-2 /HPF (0-2); Urine Squamous Cell 0-2 /LPF (Few); Urine White Cell 0-2 /HPF (0-5)
--- NOTE | 2024-03-25 10:40 | CM ---
Met with and Mrs. Mckeon in [facility]. He states prior to admission he resides with his spouse in a two story home with a ramp to enter. He states he has a first floor set-up with a powder room. He states he has to go up a full flight of steps to
get to full bathroom to shower. He states prior to admission he ambulates with a single point cane. He states he has a single point cane and rolling walker at home. He states he has a prescription plan. He states his spouse will be home to assist
in his care if needed. The discharge plan is to return home with his spouse and a home visit by the Transitional Care Nurse when medically stable.
We reviewed pre-op and post-op routines. We reviewed the shower instructions. He has the soap and the written instructions. He already has the TAVR Educational Booklet. We also reviewed restrictions including driving and lifting restrictions.
We also discussed a home visit by the Transitional Care Nurse. He is agreeable to a home visit. The plan is to TAVR on March.
[2024-04-02] VITALS (15 sets, daily range): BP systolic 128–168; BP diastolic 59–103; BMI 36.0
[2024-04-02 10:01] LABS: Glucose - Point of Care 122 mg/dl (70-99)
--- NOTE | 2024-04-02 12:25 | CM ---
Reviewed chart. Mr. Mckeon is in the operating room today. Prior to admission he resides with his spouse in a two story home with a ramp to enter. He has a first floor set-up with a powder room. He has to go up a full flight of steps to get to the
full bathroom to shower. Prior to admission he ambulates with a single point cane. He has a single point cane and rolling walker at home. He has a prescription plan. His spouse will be home to assist in his care if needed. Medical work-up in
progress. The discharge plan is to return home with his spouse and a home visit by the Transitional Care Nurse when medically stable.
--- NOTE | 2024-04-02 14:43 | W.CVOR.SURPR ---
CVOR Surgeon Immed Pre Op
-
I have examined this patient prior to performance of the scheduled procedure.
The patient's condition is unchanged from the time of the dictated/written History and
Physical and the patient is able to undergo the scheduled procedure.
--- NOTE | 2024-04-02 14:44 | W.IMMPOSTOP ---
Surgical Immed Post Op Note
-
[id number]
STRUCTURAL HEART PROCEDURE NOTE:
Preoperative Dx:
Severe aortic stenosis (P/M: 71/35, JUNITO 0.6, Bulk Mail Technician 4.2, trace AI)
Trace MR
Hx of cardiomyopathy w/ LVEF 15%
RBBB s/p PPM
CAD s/p CABG (07/14/13 w/ patent grafts)
PAD s/p L toe amputations
Renal insufficiency w/ creat 1.6
Chronic systolic heart failure
HTN/PLD
B/L carotid disease w/o hx of TIA/CVA
Hx of EtOH abuse
L foot MRSA s/p L foot STSG
DM w/ peripheral neuropathy
CARLEE w/o CPAP
Cataracts
Postoperative Dx:
Same
ACUTE on Chronic combined systolic & diastolic CHF w/ elevated LVEDP (30mmHg)
Procedures:
1) R RA access w/ tactile, U/S, and fluoroscopic guidance, micropuncture technique, 6Fr sheath placement
2) R BRANCH RENTAL MANAGER access w/ tactile, U/S, and fluoroscopic guidance, micropuncture technique, limited angiography, 6Fr sheath placement
3) R CFV access w/ U/S and fluoroscopic guidance, seldinger technique, 6Fr sheath placement
4) Placement of temporary pacing wire w/ threshold testing
5) Placement of pigtail catheter in RCC via R RA access w/ limited aortography & confirmation of coplanar valve deployment angles
6) Placement of perclose sutures x 2 into R BRANCH RENTAL MANAGER, 8Fr sheath placement
7) Placement of Villalba E-sheath in R BRANCH RENTAL MANAGER - systemic heparinization
8) Wire purchase across stenotic AV (AL-1, soft-tip straight, LVEDP assessment, extra-stiff)
9) R TF TAVR w/ placement of 26mm ANNA 3 valve
10) Completion TTE assessment; trace PVL, mean gradient 3mmHg
11) Wire reposition of pigtail into descending thoracic aorta - w/ exchange for long pigtail catheter
12) Removal of [id number]-[id number] and Villalba E-sheath from R BRANCH RENTAL MANAGER w/ mgmt w/ perclose suture x 2; manual pressure
13) Completion R ileofemoral angiography
14) Removal of temporary pacing wire and R CFV 6Fr sheath w/ manual pressure
15) Removal of R RA sheath w/ radial band placement
Snow Plow Operator:
Dr. Zaire Ridley
Cardiac Surgeon:
Dr. Blu Crow
Anesthesia:
MAC & local to R groin and R wrist
Conversion to LMA
Complications:
None
Cath Data:
Start: 1350hrs, Deploy: 1426hrs, End: 1438hrs
FT: 7.8min, mGy: 445.74, DAP: 44.8459, Contrast: 80mL
Post-TTE: trace PVL, mean gradient 3mmHg
Condition:
Stable/guarded to recovery
--- NOTE | 2024-04-02 14:49 | ITS.CL.TAVR ---
Rocket Assembly Operator - TAVR Report
TAVR PRocedure
Procedure Report:
TRANSCATHETER AORTIC VALVE REPLACEMENT
Date of Procedure: April 02, 2024
Referring: Dr. Tammy Lopez
Operators: Drs. Zaire Ridley and Blu Crow
PROCEDURE PERFORMED:
1. Successful placement of 26 mm Villalba Shady S3 aortic valve via right common femoral approach.
PREPROCEDURE NYHA CLASS: 3
DESCRIPTION OF PROCEDURE: The patient was referred for assessment of severe symptomatic aortic stenosis and following a comprehensive evaluation it was felt that transcatheter aortic valve replacement (TAVR) would be the most appropriate treatment.
Informed consent was obtained prior to the procedure. A 'time-out' was called and the procedural plan was verbally confirmed by anesthesia, surgery, perfusion, and labor contract analyst staff.
Arterial was obtained in the right common radial artery and a 6 Beninese sheath was inserted. Ultrasound guidance was then utilized to gain access into the right common femoral artery using micropuncture technique. A 6 Beninese sheath was inserted.
Venous access was then obtained in the right common femoral vein using ultrasound guidance and a 6 Beninese sheath was inserted. Angiography of the right common femoral arteriotomy site suggested reasonable positioning for preclosure with 2 Perclose
devices. The arteriotomy site did appear to be on the medial wall, however, felt that Perclosure would be reasonable with manual pressure.
A transvenous pacemaker wire was then advanced from the right common femoral vein to the right ventricular apex where excellent pacing thresholds were obtained.
An angled pigtail catheter was then advanced through the right common femoral sheath. A Baby-J wire was advanced to the proximal descending thoracic aorta. The Pigtail catheter was advanced over the J-wire. The pigtail catheter was repositioned
over the J-wire to the right coronary cusp where angiography was performed. CZECH 24 appeared to be a coplanar angle.
Attention was then turned to the right common femoral arteriotomy site. Preclosure of the arteriotomy site was performed using 2 6 Beninese Perclose devices. An 8 Beninese sheath was then advanced over the guidewire. An Amplatz extra-stiff wire with
a generous curve was then positioned in the proximal descending thoracic aorta and provided support for delivery of the 14 Beninese Villalba E sheath. Fortunately, the Villalba E sheath past the calcific proximal right common iliac stenosis without a
significant degree of difficulty and was advanced to the descending thoracic aorta. Heparin, 9000 units was administered and the ACT was monitored during the procedure.
An AL-1 catheter was advanced through the Villalba E sheath. The 0.035 Amplatz wire was allowed to drift across the aortic arch and the AL catheter was positioned just above the aortic valve. The Amplatz extra-stiff wire was removed. A soft-tipped
straight wire probed the stenotic aortic leaflets and crossed with a mild degree of difficulty. The AL-1 catheter was then advanced to the mid left ventricle. The LVEDP measured 30 mmHg. This finding is consistent with acute on chronic systolic
and diastolic congestive heart failure. An Amplatz extra-stiff wire with a generous curved tip was then advanced through the AL-1 catheter to the left ventricular apex. The AL-1 catheter was removed.
A 26 mm Villalba SHADY S3 valve was brought to the table and the orientation of the valve on the balloon delivery system was confirmed by all operators. The SHADY S3 valve was advanced through the eSheath and into the proximal descending thoracic
aorta. The SHADY valve was centered on the delivery balloon and the entire system was retroflexed as across the aortic arch in an CZECH projection. The SHADY S3 delivery system was then advanced across the stenotic aortic leaflets. The pusher was
retracted. Angiography confirmed appropriate positioning of the valve and rapid pacing was undertaken. The 26 mm SHADY S3 valve was deployed during rapid pacing. Valve deployment was uneventful.
The post valve deployment transthoracic echocardiogram was notable for a mean gradient of 3 mmHg. Only trace aortic insufficiency was noted on the images obtained.
The Villalba valve delivery system was removed. The Villalba eSheath was removed and the Perclose knots were advanced to the arteriotomy site with excellent hemostasis. Angiography after the Perclose knots were advanced to the arteriotomy site and
demonstrated good distal runoff. A persistent ooze from the right common femoral arteriotomy site required manual compression x 15-20 minutes. 40 mg of protamine was administered to reverse effects of heparin and manual pressure was held over the
right common arteriotomy site.
A TR band was then utilized to obtain hemostasis in the right common femoral artery. Manual pressure was held over the right common femoral venous access site.
Fluoro Time: 7.8 min, Dose: 446 mGy, DAP : 44.8 Gy.cm2
CONCLUSIONS:
1. Severe symptomatic aortic stenosis. Successful deployment of a 26 mm SHADY S3 valve from right common femoral approach. The post valve deployment mean gradient measured 3 mmHg
Copy to: Dr. Tammy Lopez
--- NOTE | 2024-04-02 14:49 | W.PN.UPDATE ---
Update Note
Progress Note Update
Reviewed Mr. Mckeon with the heart team in the preTAVR SDM meeting and confirmed a 26 mm S3 via right transfemoral access. Patient will resume aspirin post TAVR. LVEDP 30mmHg. #26mm S3 (serial# [id number]) successfully deployed via (R) TF access. Post
implant MG 3mmHg.
[2024-04-02 15:35] LABS: Glucose - Point of Care 87 mg/dl (70-99)
--- NOTE | 2024-04-02 15:44 | PTCARENOTE ---
Maricel Coon CVPA here to assess pt. Discussed usual procedure to wait 2 hours before starting air removal from radial band. Per PA will wait the 2 hours before starting air removal as ordered.
--- NOTE | 2024-04-02 15:55 | PTCARENOTE ---
4 oz cranberry juice given
--- NOTE | 2024-04-02 16:45 | PTCARENOTE ---
Rec'd Pt s/p TAVR, A,A+Ox3, denies pain. R femoral dsg D+I, R radial band on, weak radial pulse, O2 sat 95% on R finger. + DP and PT pulses with doppler.
[2024-04-02 17:36] LABS: Glucose - Point of Care 102 mg/dl (70-99)
[2024-04-02] MEDS: ANCEF 5 IV (19:37)
[2024-04-02] MEDS: COREG 12.5 MG PO (19:37)
--- NOTE | 2024-04-02 20:26 | PTCARENOTE ---
Pt. received at change of shift. Pt seen and assessed in room. Pt AOx3, tele reading AV paced. This RN removed TR band and applied gauze and tegaderm to R Radial, site is c/d/i and soft with positive pulses. R femoral site c/d/i and soft.
Neurovascular checks completed and documented per protocol. This RN explained plan of care, pt verbalizes understanding. Continuing to monitor at this time.
[2024-04-02 22:10] LABS: Glucose - Point of Care 115 mg/dl (70-99)
[2024-04-02] MEDS: LANTUS 0.38 UNITS SC (22:25)
[2024-04-03 03:29] VITALS: BP 167/90
[2024-04-03 03:31] VITALS: BP 167/78
[2024-04-03] MEDS: NORVASC 10 MG PO (04:08)
[2024-04-03 04:16] VITALS: BMI 35.9
[2024-04-03 04:25] LABS: Hematocrit 44.3 % (39.0-52.0); Hemoglobin 14.9 g/dL (13.0-18.0); Mean Corp Hgb Conc. 33.6 g/dL (33.0-37.0); Mean Corpuscular Hgb 29.7 pg (27.0-31.0); Mean Corpuscular Volume 88.4 fL (80.0-94.0); Mean Platelet Volume 10.6 fL (7.4-10.4); Platelet Count 209 10^3/uL (130-400); Red Blood Cell Count 5.01 10^6/uL (4.70-6.10); Red Cell Dist. Width 13.5 % (11.5-14.5); White Blood Cell Count 9.5 10^3/uL (4.8-10.8)
[2024-04-03 04:51] VITALS: BP 130/64
[2024-04-03 04:53] LABS: Blood Urea Nitrogen 32 mg/dl (9-20); Calcium 8.8 mg/dl (8.4-10.2); Carbon Dioxide 22 mmol/L (22-30); Chloride 104 mmol/L (98-107); Estimated Creatinine Clearance 49 ml/min; Glucose 104 mg/dl (70-99); Potassium 4.6 mmol/L (3.5-5.1); Sodium 137 mmol/L (135-145); eGFR 45.21
--- NOTE | 2024-04-03 04:59 | W.PN.CT ---
Today's Communication / Plan
-
-pod #1
-no issues overnight
-a-v paced 60s (Medtronic pacer)
-Hg 14.9 (15.4 preop)
-Cr stable 1.6 (1.6 preop)
-Echo today
-current meds (ASA, Lipitor, Coreg, Norvasc, Farxiga, HCTZ, Cozaar)
-encourage IS, OOB
-possible d/c
Assessment / Plan
-
- Severe symptomatic - s/p R TF TAVR w/ placement of 26mm ANNA 3 valve on 04/02/24, pod #1
- ACUTE on Chronic combined systolic & diastolic CHF w/ elevated LVEDP (30mmHg)
- Post-TTE: trace PVL, mean gradient 3mmHg
- Trace MR
- Hx of cardiomyopathy w/ LVEF 15%
- RBBB s/p PPM (Medtronic 01/21/2024)
- CAD s/p CABG (07/14/13 w/ patent grafts)
- PAD s/p L toe amputations
- Renal insufficiency w/ creat 1.6
- Chronic systolic heart failure
- HTN/HLD
- B/L carotid disease w/o hx of TIA/CVA
- Hx of EtOH abuse
- L foot MRSA s/p L foot STSG 2018, ambulates with cane
- DM w/ peripheral neuropathy
- CARLEE w/o CPAP
- Cataracts
Discussed patient care with: Nursing and Care Team
Subjective
Procedure
- s/p R TF TAVR w/ placement of 26mm ANNA 3 valve on 04/02/24
-
Date of Service: April 03, 2024
Objective Data
-
PT 12.3 Sec (11.4-14.6) 03/25/24 08:45
INR 0.87 01/08/25 08:45
APTT 28.1 Sec (23.4-35.0) 03/25/24 08:45
Vital Signs
Vital Signs
Temp Pulse Resp BP Pulse Ox
98.1 F 62 20 144/74 95
04/02/24 23:27 04/02/24 22:30 04/02/24 23:27 04/02/24 22:08 04/02/24 23:27
CT Intake/Output/Weight
04/02/24 04/02/24 04/03/24
06:59 18:59 06:59
Intake Total 1220 / 1220
Balance 1220 / 1220
SaO2: 95
Physical Exam
-
General: Awake and AOx3
Cardiovascular: Regular rate & rhythm, No Murmurs and No Rub
Respiratory: Rales (few rales, no wheeze) and Decreased Breath Sounds
Incision: Other (groin is cdi, soft, nontender, no hematoma b/l)
Extremities: Edema +1
Abdomen: soft, nontender, + bowel sounds
Data Reviewed
-
Lab Results: Results Reviewed
Medications: Active Meds Reviewed
Chest X-Ray: Report Reviewed and Image Reviewed
ECG: Report Reviewed and Image Reviewed
--- NOTE | 2024-04-03 05:06 | PTCARENOTE ---
3am BP 160s/70s-90s b/l upper arms. Pt. asymptomatic. CT PA notified. Pt. given stat norvasc per order. Repeat BP 130/64. Continuing to monitor at this time.
[2024-04-03 07:21] VITALS: BP 143/71
[2024-04-03] MEDS: ASPIR LOW (ENTERIC COATED) 81 MG PO (07:53)
[2024-04-03] MEDS: COZAAR 100 MG PO (07:53)
[2024-04-03] MEDS: LIPITOR 20 MG PO (07:53)
[2024-04-03] MEDS: ORETIC 25 MG PO (07:54)
[2024-04-03] MEDS: COREG 12.5 MG PO (07:54)
[2024-04-03] MEDS: NEURONTIN 300 MG PO (07:54)
[2024-04-03] MEDS: FARXIGA 10 MG PO (07:54)
[2024-04-03 08:08] LABS: Glucose - Point of Care 95 mg/dl (70-99)
--- NOTE | 2024-04-03 08:14 | W.PN.ANS.POP ---
Anesthesia Post Operative
- Anesthesia Post Op Note
Vital Signs Stable-See Nursing Note: Yes
Airway Patent: Yes
Adequate Pain Control: Yes
Change in Mental Status: No
Current Postoperative Nausea & Vomiting: No
Anesthesia Complications: No
General Anesthetic Recall: No
Unplanned Admission: No
Post Op Hydration Adequate: Yes
--- NOTE | 2024-04-03 09:18 | W.PN.CARDCBS ---
Addendum entered and electronically signed by Zaire Ridley MD 04/03/24 14:24:
Attending addendum: Patient seen and examined. PA note reviewed. I met with Mr. Mckeon and his . He is clinically doing well and stable for discharge. Mean gradient 12 mmHg and trace aortic insufficiency
Original Note:
Today's Communication / Plan
-
In a sensed V paced rhythm
Hemoglobin stable
Repeat echo
Ambulate
Likely for discharge to home later today
Outpatient cardiac follow-up arranged
Impression / Plan
-
Primary [facility]: Dr. Tammy Lopez
Assessment:
-Severe symptomatic s/p R TF TAVR 26mm ANNA 3 valve 04/02/24
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
-Trace MR
-Hx of cardiomyopathy, EF as low as 15%, most recent 40% by echo 12/2023
-Chronic RBBB and LAFB
-Heart block s/p Medtronic PPM 01/21/2024
-CAD s/p CABG 2013
-Renal insufficiency
-HTN
-HLD
-B/L carotid disease
-PAD s/p L toe amputations
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
-DM w/ peripheral neuropathy
-CARLEE w/o CPAP
ECHO 12/17/2022: EF 50 to 55%, mildly dilated RV, trace MR, moderate to severe with mean gradient 26 mmHg, JUNITO 1.2 cm�, mild TR, PAP 35 mmHg
ECHO 12/31/2023: EF 40 to 45%, trace MR, severe with mean gradient 30 to 35 mmHg, JUNITO 0.6 cm�
ECHO 04/02/2024: TDS, EF 40%, status post 26 mm Villalba TAVR with peak/mean gradients/3 mmHg, trace AR, no pericardial effusion
Plan:
-Status post TAVR 04/02/2024
-LVEDP was 30 at time of TAVR, back on outpatient HCTZ 25 mg daily. Creatinine stable at 1.6, has chronic renal insufficiency, followed by Dr. Walsh nephrology.
-Repeat echo today
-Continue aspirin. Hemoglobin stable at 14.9. No issues with groin sites
-Currently in a sensed V paced rhythm on review of telemetry overnight
-Follow blood pressure trends, uptitrate outpatient antihypertensive regimen as able. Continue Norvasc 10 mg daily, Coreg 12.5 mg twice daily, Cozaar 100 mg daily as well as farxiga
-Continue Repatha
-He has been ambulatory to the bathroom several times without issue. He walks with a cane
-Outpatient cardiac follow-up arranged
-Likely for discharge to home today
Progress Note - [facility]
Subjective
Date of Service: April 03, 2024
No issues overnight
Objective
Labs:
04/03/24 03:38
04/03/24 03:38
Labs
Hgb 14.9 g/dL (13.0-18.0) 04/03/24 03:38
Hct 44.3 % (39.0-52.0) 04/03/24 03:38
Plt Count 209 10^3/uL (130-400) 04/03/24 03:38
PT 12.3 Sec (11.4-14.6) 03/25/24 08:45
INR 0.87 03/25/24 08:45
APTT 28.1 Sec (23.4-35.0) 03/25/24 08:45
Sodium 137 mmol/L (135-145) 04/03/24 03:38
Potassium 4.6 mmol/L (3.5-5.1) 04/03/24 03:38
BUN 32 mg/dl (9-20) H 04/03/24 03:38
Creatinine 1.6 mg/dL (0.7-1.3) H 04/03/24 03:38
Glucose 104 mg/dl (70-99) H 04/03/24 03:38
Vital Signs and I&O:
Vital Signs
Temp Pulse Resp BP Pulse Ox
98.9 F 70 20 143/71 95
04/03/24 07:18 04/03/24 07:30 04/03/24 07:18 04/03/24 07:21 04/03/24 07:18
Vital Signs
Temp Pulse Resp BP Pulse Ox
98.9 F 70 20 143/71 95
04/03/24 07:18 04/03/24 07:30 04/03/24 07:18 04/03/24 07:21 04/03/24 07:18
Intake & Output
04/01/24 04/02/24 04/03/24 04/04/24
07:59 07:59 07:59 07:59
Intake Total 1220 / 1220
Balance 1220 / 1220
Physical Exam
Physical Exam
GEN: No distress, awake, alert, oriented x3. Obese
HEENT: supple, anicteric, mmm, EOMI
LUNGS: CTA bilaterally, no wheezes/rales
CV: Reg, S1/S2, no murmur
ABD: soft, BS+, NT/ND
EXT: No cyanosis, clubbing, Edema. Left foot amputation
NEURO: Gross non-focal
SKIN: Warm, pink, dry. No rash
--- NOTE | 2024-04-03 10:28 | PTCARENOTE ---
Pt feeling well this morning, OOB to BR and walked with card rhb, leticia well. R groin dsg D+I, R radial dsg D+I, denies pain, VSS.
--- NOTE | 2024-04-03 10:50 | W.DCSUMMARY ---
Discharge Summary
Discharge Data
Date of Admission: 04/02/24
Date of Discharge: 04/03/24
-
Pending Results: No
Hospital Course
Primary care physician: Nancy Dallas
Outpatient lead generation representative: Tammy Lopez
Inpatient consultants: [facility]
Procedures:
1. TAVR
Primary Diagnosis:
1. Severe nonrheumatic aortic stenosis
Secondary Diagnoses:
1. RBBB s/p PPM
2. CAD s/p CABG (07/14/13 w/ patent grafts)
3. PAD s/p L toe amputations
4. Renal insufficiency w/ creat 1.6
5. Chronic systolic heart failure (EF 40-45%)
6. HTN/PLD
7. B/L carotid disease w/o hx of TIA/CVA
8. Hx of EtOH abuse
9. L foot MRSA s/p L foot STSG
10. DM w/ peripheral neuropathy
11. CARLEE w/o CPAP
12. Cataracts
HPI: 73-year-old male was electively admitted on 04/02/2024 for TAVR
Hospital course: Patient underwent right TF TAVR #26mm ANNA [address] Blu Crow and Zaire Ridley. Postprocedure echocardiogram reported an EF of 40% with AV gradients of 4/3 mmHg and trace AI. He experienced no postoperative issues
and was transferred to IVU. On postoperative day #1, his chest x-ray was stable and a predischarge echo ported an EF of 45-50%, stage I diastolic dysfunction, AV gradients of 23/12 mmHg and trace AI. Patient ambulated in hallways, groin sites
intact without hematoma or bleeding, and patient was deemed stable for discharge home
Home medication changes:
none
Discharge Plan
-
Discharge Diagnosis/Procedures: TF TAVR
Diet: Low Fat, Low Cholesterol and 2 Gram Sodium
Activity: As tolerated
Driving Restrictions: No driving for 1 week
Bathing Restrictions: OK to Shower
Others Tests: 30-day follow up echocardiogram: 05/01/2023@ 11:20 at [facility].
Other Services: Cardiac Rehab
Wound Care: NO lotions, powders, or creams to puncture sites
Specialty Instructions: Weigh Daily- Call MD for wt gain/loss 3 lbs overnight/5 lbs in 1 week
Referrals:
CT Transitional Care Nurse [Outside] - in one to two days
(
The Cardiothoracic Transitional Care Nurse will call you to set up a visit in 1-2 days.)
Nancy Dallas MD [Family Provider] - in four to six weeks (Please make an appointment in four to six weeks. )
She Lacy PA-C [Specified Professional Personl] - 04/27/24 2:00 pm
Prescriptions:
Continued
gabapentin 300 MG capsule
300 mg PO DAILY
insulin degludec [Tresiba FlexTouch U-100] 100 UNIT/ML insulin pen
38 units SC HS
Repatha SureClick 140 MG/ML pen injector
140 mg SQ Q2W
dapagliflozin propanediol [Farxiga] 10 MG tablet
10 mg PO DAILY
aspirin 81 MG tablet,delayed release (DR/EC)
81 mg PO DAILY Qty: 0 0RF
hydrochlorothiazide 25 mg Tablet
25 mg PO DAILY
losartan 100 mg Tablet
100 mg PO DAILY
(DME) FreeStyle Fly 14 Day Sensor Kit
MISCELLANEOUS
atorvastatin 20 mg Tablet
20 mg PO DAILY
carvedilol 12.5 mg Tablet
12.5 mg PO BID
insulin aspart U-100 [Novolog FlexPen U-100 Insulin] 100 unit/mL (3 mL) Insulin Pen
1 sliding scale dose SC DIRECTED
amlodipine 10 mg Tablet
10 mg PO DAILY
Discharge Orders:
Discharge Patient (As Directed); Ordered 04/03/24
Ordered By: Nancy Tipton
Care Plan Goals
Care Plan Goals:
Problem: Readiness for enhanced knowledge related to diagnosis and treatment plan
Goal: Understand your diagnosis and treatment plan needs, including medications if applicable.
Instructions: Know your diagnosis, underlying causes and treatment plan options, including medications if applicable. Consult with your health care team to learn about your diagnosis and treatment plan, including medications if applicable.
Discharge Date and Time
Print Language: CYMRO
[2024-04-03 11:30] VITALS: BP 112/57; BP 132/80; PULSE 64
--- NOTE | 2024-04-03 11:37 | CM ---
Chart reviewed. Patient is independent of ADLS, lives with his in a 2 [address], 1st floor set up, ramp to enter and ambulates with a SPC and RW. Plan is for the patient to return home with CT Transitional RN. CM to follow
== END 2024-04-03 16:10 | disposition home or self-care (01) | DRG 266 ==
LOC: IVU 09:25
PROVIDERS: Physician Assistant Medical; ADMITTING PHYSICIAN Thoracic Surgery (Cardiothoracic Vascular Surgery); FAMILY PHYSICIAN Family Medicine
PROC: 02RF38Z Replacement of Aortic Valve with Zooplastic Tissue, Percutaneous Approach (ICD-10-PCS; 2024-04-02)
DX: I35.0 Nonrheumatic aortic (valve) stenosis (principal); I50.43 Acute on chronic combined systolic (congestive) and diastolic (congestive) heart failure; I42.9 Cardiomyopathy, unspecified; I25.10 Atherosclerotic heart disease of native coronary artery without angina pectoris; E11.51 Type 2 diabetes mellitus with diabetic peripheral angiopathy without gangrene; E11.42 Type 2 diabetes mellitus with diabetic polyneuropathy; I11.0 Hypertensive heart disease with heart failure; E78.5 Hyperlipidemia, unspecified; N28.9 Disorder of kidney and ureter, unspecified; G47.33 Obstructive sleep apnea (adult) (pediatric); E11.36 Type 2 diabetes mellitus with diabetic cataract; Z79.4 Long term (current) use of insulin; Z79.82 Long term (current) use of aspirin; Z79.899 Other long term (current) drug therapy; Z86.14 Personal history of Methicillin resistant Staphylococcus aureus infection; Z95.0 Presence of cardiac pacemaker; Z95.1 Presence of aortocoronary bypass graft
CPT/HCPCS: 93308; 33361; 36415; 71045; 71046; 80048; 80053; 81003; 81015; 82248; 82962; 83036; 85025; 85027; 85347; 85610; 85730; 86850; 86900; 86901; 86920; 87070; 87086; 93005; 93306; 93321; 93325; C1760; C1769; C1894; Q9950; Q9967

== ENCOUNTER → 2024-04-13 14:23 | Outpatient (REF) | payer OTHER, SELFPAY ==
--- NOTE | 2024-04-13 15:33 | CARDSERVLU ---
Echocardiogram with Lumason completed after protocol screening completed. Allergies verified.
Patent IV site: rt hand
IV site flushed with 0.9% NaCl pre and post administration.
Diluted bolus method utilized to enhance visualization of ventricular wyatt.
Total volume given: __2.0__ mL
Patient tolerated all procedures well without complications.
== END ==
LOC: RCS 14:23
PROVIDERS: ATTENDING PHYSICIAN Internal Medicine Cardiovascular Disease; FAMILY PHYSICIAN Family Medicine
DX: I35.0 Nonrheumatic aortic (valve) stenosis (principal); I25.10 Atherosclerotic heart disease of native coronary artery without angina pectoris
CPT/HCPCS: 93306; Q9950

== ENCOUNTER → 2025-01-04 13:27 | Outpatient (REF) | payer OTHER, SELFPAY ==
--- NOTE | 2025-01-04 15:17 | CARDSERVLU ---
Echocardiogram with Lumason completed after protocol screening completed. Allergies verified.
Patent IV site: left hand____
IV site flushed with 0.9% NaCl pre and post administration.
Diluted bolus method utilized to enhance visualization of ventricular wyatt.
Total volume given: __3.0_ mL
Patient tolerated all procedures well without complications.
# 22 kelsi placed left hand. Lumason given. INT d/c'd. pressure held, no bleeding noted.
== END ==
LOC: RCS 13:27
PROVIDERS: ATTENDING PHYSICIAN Internal Medicine Cardiovascular Disease; FAMILY PHYSICIAN Family Medicine
DX: Z95.2 Presence of prosthetic heart valve (principal)
CPT/HCPCS: 93306; Q9950

== ENCOUNTER → 2025-02-16 10:19 | Outpatient (REF) | payer OTHER, SELFPAY | LOC: PET 10:19 | PROVIDERS: ATTENDING PHYSICIAN Internal Medicine Cardiovascular Disease | DX: I25.10 Atherosclerotic heart disease of native coronary artery without angina pectoris (principal) | CPT/HCPCS: 78431; A9555; J2785 ==